=== PATIENT | male | born 1990 | race African-American/Black ===

== ENCOUNTER 2024-10-22 12:03 | Emergency (ER) | payer SELFPAY ==
[~2024-10-22] VITALS: Ht 182.9 cm; Wt 102.5 kg
[2024-10-22 12:10] VITALS: PULSE 70; RESP 18; TEMP 98.6; O2SAT 96
[2024-10-22] MEDS ORDERED: AMOX TR-K CLV1 EAC2 PO (12:29)
== END 2024-10-22 12:37 | disposition home or self-care (01) ==
LOC: FSED 12:10
DX: K08.89 Other specified disorders of teeth and supporting structures (principal); K02.9 Dental caries, unspecified
CPT/HCPCS: 99284

== ENCOUNTER 2025-05-18 08:20 | Emergency (ER) | payer OTHER ==
[~2025-05-18] VITALS: Ht 182.9 cm; Wt 99.1 kg
[~2025-05-18 08:20] MED LIST: AMOX TR-K CLV1 EAC2 PO
[2025-05-18] MEDS: HYDROCODONE/APAP 5MG-325MG TAB PO ONE (08:53)
[2025-05-18] MEDS: IBUPROFEN 600 MG TAB PO STA (08:53)
[2025-05-18] MEDS: CYCLOBENZAPRINE HCL 10 MG TAB PO ONE (08:54)
[2025-05-18] MEDS ORDERED: KETOROLAC TROME10 MG PO (10:35)
[2025-05-18] MEDS ORDERED: CYCLOBENZAPRINE5 MG PO (10:35)
[2025-05-18 10:44] VITALS: PULSE 44; RESP 16; TEMP 98; O2SAT 98
== END 2025-05-18 10:44 | disposition home or self-care (01) ==
LOC: FSED 08:25
DX: R10.9 Unspecified abdominal pain (principal); S20.212A Contusion of left front wall of thorax, initial encounter; W50.1XXA Accidental kick by another person, initial encounter; Y93.61 Activity, american tackle football; Y92.89 Other specified places as the place of occurrence of the external cause; F17.210 Nicotine dependence, cigarettes, uncomplicated
CPT/HCPCS: 71250; 74176; 99283